=== PATIENT | male | born 1975 | race Caucasian/White ===

== ENCOUNTER 2017-09-16 12:24 | Emergency (ER) | payer SELFPAY ==
--- NOTE | 2017-09-16 13:39 | ER Document Report ---
HPI - HPI Pain Level: 5 Notes: Patient is a 41-year-old male who presents the ED complaining of left ankle and left lateral foot pain status post injury last evening. Patient states that he was walking through his yard when he fell in a hole and his foot inverted. Patient states that he felt a pop in his foot. Patient has not had any obvious swelling or bruising to the area. Patient states that he is unable to weight- bear because of the pain. He denies any significant past medical history otherwise. Denies any smoking or IV drug use. Patient states that he can still move his toes and his foot at his ankle. Denies any headache, fever, neck pain, chest pain, palpitations, syncope, cough, shortness of breath, wheeze , dyspnea, abdominal pain, nausea/vomiting/diarrhea, urinary retention, dysuria , hematuria, numbness/tingling, muscle paralysis/weakness, or rash. - ROS Systems Reviewed and Negative: Yes All other systems reviewed and negative Past Medical History - Social History Smoking Status: Never Smoker Family History: Reviewed & Not Pertinent Vertical Provider Document - CONSTITUTIONAL Agree With Documented VS: Yes Notes: PHYSICAL EXAMINATION: GENERAL: Well-appearing, well-nourished and in no acute distress. A&Ox4. LUNGS: Breath sounds clear to auscultation bilaterally and equal. No wheezes rales or rhonchi. HEART: Regular rate and rhythm without murmurs, rubs, gallops. Musculoskeletal: Left ankle/foot: FROM to passive/active. Strength 5+/5. No obvious swelling, ecchymosis, erythema, or deformity noted. N/V intact distal. + tenderness to the lateral malleolus and palp to the lateral foot. Achilles intact. Extremities: No cyanosis, clubbing, or edema b/l. Peripheral pulses 2+. Capillary refill less than 3 seconds. NEUROLOGICAL: Normal sensory, motor exams otherwise PSYCH: Normal mood, normal affect. SKIN: Warm, Dry, normal turgor, no rashes or lesions noted. - INFECTION CONTROL TRAVEL OUTSIDE OF THE [place] IN LAST 30 DAYS: No - RESPIRATORY O2 Sat by Pulse Oximetry: 98 Course - Re-evaluation Re-evalutation: 09/16/17 14:22 Patient is an afebrile, well-hydrated, 41-year-old male who presents the ED with a left lateral ankle/foot sprain versus strain. Vitals are stable. PE is otherwise unremarkable for any neurovascular compromise, obvious tendon/ ligament rupture, obvious fracture/dislocation, septic joint. X-ray was unremarkable for any acute pathology. Crutches were provided along with an ankle stirrup splint. Recommend conservative measures for symptoms. Recheck with your PCM in 3-5 days. Consider consult with orthopedics as physical therapy. Return to the ED with any worsening/concerning symptoms otherwise as reviewed discharge. Patient is in agreement. - Vital Signs Vital signs: Temp Pulse Resp BP Pulse Ox 98.2 F 85 16 110/80 98 09/16/17 12:37 09/16/17 12:37 09/16/17 12:37 09/16/17 12:37 09/16/17 12:37 Discharge - Discharge Clinical Impression: Left foot pain Left ankle pain Qualifiers: Chronicity: acute Qualified Code(s): M25.572 - Pain in left ankle and joints of left foot Condition: Stable Disposition: HOME, SELF-CARE Instructions: Ankle Stirrup Splint ([facility]), Use of Crutches ([facility]), Ice & Elevation ([facility]) Additional Instructions: Rest, Ice, Compression, Elevation Use crutches/splint as directed Tylenol/ibuprofen as needed Light stretches daily Strength exercises as able Moist heat and massage may help F/u with your PCP in 3-5 days for a recheck Consider consult(s) with Orthopedics/physical therapy for ongoing/worsening symptoms Return to the ED with any worsening symptoms and/or development of fever, headache, chest pain, palpitations, syncope, shortness of breath, trouble breathing, abdominal pain, n/v/d, muscle weakness/paralysis, numbness/tingling, swelling, redness, or other worsening symptoms that are concerning to you. Prescriptions: Naproxen 500 mg PO BID PRN #30 tablet PRN Reason: Referrals: [facility] ([facility] [Provider Group] - Follow up as needed
--- NOTE | 2017-09-16 14:06 | RADIOLOGY REPORT (SQ) ---
EXAM DESCRIPTION: ANKLE LEFT COMPLETE COMPLETED DATE/TIME: 09/16/2017 1:54 pm REASON FOR STUDY: left ankle/foot pain s/p injury COMPARISON: None. NUMBER OF VIEWS: Three views. TECHNIQUE: AP, lateral, and oblique radiographic images acquired of the left ankle. LIMITATIONS: None. FINDINGS: MINERALIZATION: Normal. BONES: No acute fracture or dislocation. No worrisome bone lesions. JOINTS: No effusions. SOFT TISSUES: No soft tissue swelling. No foreign body. OTHER: No other significant finding. IMPRESSION: NEGATIVE STUDY OF THE LEFT ANKLE. NO RADIOGRAPHIC EVIDENCE OF ACUTE INJURY. TECHNICAL DOCUMENTATION: JOB ID: [id number] [employer]- All Rights Reserved
--- NOTE | 2017-09-16 14:10 | RADIOLOGY REPORT (SQ) ---
EXAM DESCRIPTION: FOOT LEFT COMPLETE COMPLETED DATE/TIME: 09/16/2017 1:54 pm REASON FOR STUDY: left ankle/foot pain s/p injury COMPARISON: None. NUMBER OF VIEWS: Three views. TECHNIQUE: AP, lateral and oblique radiographic images acquired of the left foot. LIMITATIONS: None. FINDINGS: MINERALIZATION: Normal. BONES: No acute fracture or dislocation. No worrisome bone lesions. Minimal calcaneal spurring at t he insertion of the Achilles. JOINTS: No effusions. SOFT TISSUES: No soft tissue swelling. No foreign body. OTHER: No other significant finding. IMPRESSION: NO RADIOGRAPHIC EVIDENCE OF ACUTE INJURY. TECHNICAL DOCUMENTATION: JOB ID: [id number] [employer]- All Rights Reserved
[2017-09-16 14:51] VITALS: BP 126/90
== END 2017-09-16 14:49 | disposition home or self-care (01) ==
LOC: ER 12:24
DX: M25.572 Pain in left ankle and joints of left foot (principal); W17.2XXA Fall into hole, initial encounter; Y92.007 Garden or yard of unspecified non-institutional (private) residence as the place of occurrence of the external cause
CPT/HCPCS: 99283; 73610; 73630; L1902

== ENCOUNTER 2017-12-19 13:56 | Emergency (ER) | payer SELFPAY ==
[2017-12-19] MEDS ORDERED: LIDOCAINE 2% VISCOUS SOLN 20 ML UDCUP PO ONE (14:19)
--- NOTE | 2017-12-19 14:25 | ER Document Report ---
HPI - HPI Pain Level: 3 Notes: Patient is a 42-year-old male no significant past medical history who presents to the ED complaining of right ear pain 1 week. Patient states that he has not noticed any drainage from his ear. The pain radiates down into his jaw at times. He is eating and drinking without difficulties, but does experience discomfort when he opens and closes his jaw and feels like his ear is not equalizing the pressure appropriately. He denies any drug allergies. Denies any IV drug use. No other concerns or complaints at this time. Denies any headache, fever, head injury, neck pain, URI, sore throat, chest pain, palpitations, syncope, cough, shortness of breath, wheeze, dyspnea, abdominal pain, nausea/vomiting/diarrhea, urinary retention, dysuria, hematuria, or rash. - ROS Systems Reviewed and Negative: Yes All other systems reviewed and negative Past Medical History - Social History Smoking Status: Unknown if Ever Smoked Family History: Reviewed & Not Pertinent Renal/ Medical History: Denies: Hx Peritoneal Dialysis Vertical Provider Document - CONSTITUTIONAL Agree With Documented VS: Yes Notes: PHYSICAL EXAMINATION: GENERAL: Well-appearing, well-nourished and in no acute distress. A&Ox4. Answers questions appropriately. Moves comfortably w/o notable distress HEAD: Atraumatic, normocephalic. EYES: Pupils equal round and reactive to light, extraocular movements intact, sclera anicteric, conjunctiva are normal. ENT: EAC clear b/l. Rt TM is erythemic, bulging. Lt TM wnl. Nares patent and without discharge. oropharynx no erythema without exudates. No tonsilar hypertrophy without erythema or exudate. No palatine shift. Uvula midline. No tongue protrusion. No drooling, hoarseness, or airway compromise. Moist mucous membranes. No sinus tenderness. NECK: Normal range of motion, supple without lymphadenopathy. No rigidity/ meningismus. LUNGS: Breath sounds clear to auscultation bilaterally and equal. No wheezes rales or rhonchi. No retractions HEART: Regular rate and rhythm without murmurs, rubs, gallops. ABDOMEN: Soft, nontender, nondistended abdomen. No guarding, no rebound. No masses appreciated. Normal bowel sounds present. No CVA tenderness bilaterally. No hepatosplenomegaly. NEUROLOGICAL: Normal speech, normal gait. Normal sensory, motor exams PSYCH: Normal mood, normal affect. SKIN: Warm, Dry, normal turgor, no rashes or lesions noted. - INFECTION CONTROL TRAVEL OUTSIDE OF THE [place] IN LAST 30 DAYS: No Course - Re-evaluation Re-evalutation: 12/19/17 14:25 Patient is an afebrile, well-hydrated, 42-year-old male who presents to the ED with acute otitis media of the right ear. Vitals are acceptable. PE is otherwise unremarkable. I did place half a cc of viscous lidocaine into the right EAC as there is no tympanic membrane perforation which did resolve patient 's symptoms, advised that this will only be temporary. No labs or imaging warranted at this time based on H&P. I will send him home with a prescription for amoxicillin to take as directed. Conservative measures otherwise for symptoms. Recheck with your PCM in 3-5 days. Return to the ED with any worsening/concerning symptoms otherwise as reviewed discharge. Patient is in agreement. - Vital Signs Vital signs: Temp Pulse Resp BP Pulse Ox 98.5 F 77 18 121/74 96 12/19/17 14:06 12/19/17 14:06 12/19/17 14:06 12/19/17 14:06 12/19/17 14:06 Discharge - Discharge Clinical Impression: Otitis media of right ear Qualifiers: Otitis media type: unspecified Qualified Code(s): H66.91 - Otitis media, unspecified, right ear Condition: Stable Disposition: HOME, SELF-CARE Instructions: Otitis Media ([facility]) Additional Instructions: Maintain adequate fluid intake Take meds as directed tylenol/ibuprofen as needed over the counter cold medication as needed for symptoms Avoid q-tips in ears Wash your hands regularly F/u: with your PCM in 3-5 days for a recheck Consider consult with ENT Return to the ED with any fever, worsening pain, chest pain, palpitations, syncope, worsening RICHARDS, neck pain/stiffness, shortness of breath, wheezing, drooling, trouble swallowing/breathing, abdominal pain, n/v/d, rash, or worsening/concerning symptoms otherwise. Prescriptions: Amoxicillin Trihydrate [Amoxil 875 mg Tablet] 1 tab PO BID #20 tablet Referrals: CRISTEL VILLALOBOS DO [ASSOCIATE] - Follow up as needed
[2017-12-19 14:50] VITALS: BP 104/58
== END 2017-12-19 14:50 | disposition home or self-care (01) ==
LOC: ER 13:56
DX: H66.91 Otitis media, unspecified, right ear (principal)
CPT/HCPCS: 99282; J3490

== ENCOUNTER 2018-03-24 21:07 | Emergency (ER) | payer SELFPAY ==
[2018-03-24] MEDS ORDERED: KETOROLAC TROMETHAMINE 60 MG/2 ML SDV IM ONE (22:43)
[2018-03-24] MEDS ORDERED: DIAZEPAM INJ 10 MG/2 ML DISP.SYRIN IM ONE (22:43)
--- NOTE | 2018-03-24 22:43 | ER Document Report ---
ED General - General Chief Complaint: Back Pain Stated Complaint: BACK PAIN Time Seen by Provider: 03/24/18 22:25 Mode of Arrival: Wheelchair Information source: Patient Notes: Patient reports that approximately 2 weeks ago he was helping a friend move when he fell off of a [employer] truck landing onto his back. Patient reports that he got up and shrugged it off however the pain has progressively gotten worse over the last 2 weeks. Patient's pain is located from the cervical spine down into the lumbar spine mostly on the right-hand side. With radiation to the right leg. Patient denies any fever, denies any loss of bowel or bladder. TRAVEL OUTSIDE OF THE [place] IN LAST 30 DAYS: No - Related Data Allergies/Adverse Reactions: No Known Allergies Allergy (Verified 09/16/17 12:29) Past Medical History - General Information source: Patient - Social History Smoking Status: Never Smoker Chew tobacco use (# tins/day): No Frequency of alcohol use: None Drug Abuse: None Family History: Reviewed & Not Pertinent Patient has suicidal ideation: No Patient has homicidal ideation: No - Medical History Medical History: Negative Renal/ Medical History: Denies: Hx Peritoneal Dialysis Surgical Hx: Negative - Immunizations Immunizations up to date: Yes Hx Diphtheria, Pertussis, Tetanus Vaccination: Yes Review of Systems - Review of Systems Constitutional: No symptoms reported EENT: No symptoms reported Cardiovascular: No symptoms reported Respiratory: No symptoms reported Gastrointestinal: No symptoms reported Genitourinary: No symptoms reported Male Genitourinary: No symptoms reported Musculoskeletal: See HPI Skin: No symptoms reported Hematologic/Lymphatic: No symptoms reported Neurological/Psychological: No symptoms reported Physical Exam - Vital signs Vitals: Temp Pulse Resp BP Pulse Ox 98.9 F 85 18 125/90 H 96 03/24/18 21:18 03/24/18 21:18 03/24/18 21:18 03/24/18 21:18 03/24/18 21:18 - Notes Notes: PHYSICAL EXAMINATION: GENERAL: Well-appearing, well-nourished and in no acute distress. HEAD: Atraumatic, normocephalic. EYES: Pupils equal round and reactive to light, extraocular movements intact, sclera anicteric, conjunctiva are normal. NECK: Normal range of motion, supple without lymphadenopathy LUNGS: Breath sounds clear to auscultation bilaterally and equal. No wheezes rales or rhonchi. HEART: Regular rate and rhythm without murmurs Musculoskeletal: Normal range of motion, no pitting or edema. No cyanosis. Tenderness to palpation to right paraspinous muscles. NEUROLOGICAL: Cranial nerves grossly intact. Normal speech. Normal sensory, motor exams PSYCH: Normal mood, normal affect. SKIN: Warm, Dry, normal turgor, no rashes or lesions noted. Course - Re-evaluation Re-evalutation: 03/25/18 00:19 All radiology studies are negative for any acute fractures or dislocations. Patient reports significant relief after administration of both pain medications and muscle relaxer. Will discharge patient home at this time in stable condition. - Vital Signs Vital signs: Temp Pulse Resp BP Pulse Ox 98.9 F 85 18 125/90 H 96 03/24/18 21:18 03/24/18 21:18 03/24/18 21:18 03/24/18 21:18 03/24/18 21:18 Discharge - Discharge Clinical Impression: Back strain Qualifiers: Encounter type: initial encounter Qualified Code(s): S39.012A - Strain of muscle, fascia and tendon of lower back, initial encounter Condition: Stable Disposition: HOME, SELF-CARE Additional Instructions: LOW BACK PAIN: Three out of every four people will have an episode of disabling back pain during their lifetime. Most commonly the pain is due to straining of the muscles and ligaments in the low back. Usual treatment includes: (1) Rest on a firm surface. Avoid lying on your stomach. (2) Ice pack the painful area. After a few days, gentle heat may be used intermittently to relax the area, or ice packs can be continued. (3) Medication may be needed -- muscle relaxers and antiinflammatory medicines are commonly used. (4) As the back improves, exercises are prescribed to strengthen the back and abdominal muscles. Your doctor will advise you on the proper care for your back at each stage in your recovery. You may be better in a few days -- or healing may take several weeks. If new symptoms of a "herniated disc" (radiation of pain, numbness, or tingling down the back of the leg or weakness in the leg) occur, you should be re-examined. Further testing may be necessary. PAIN MEDICATION INJECTION: You have received an injection of a pain medication. You should experience significant pain relief within 45 minutes. If this injection was a narcotic -- it will impair your judgement, slow your reaction time and make you sleepy (as well as relieve your pain). Narcotics also can cause nausea. You should not drive, work with machinery, or perform any task requiring mental alertness until all effects of the medication are gone -- six to eight hours. Do not take any alcohol, or sedatives, and do not take any other medication without checking with your physician. MUSCLE RELAXERS: Muscle relaxing medications are usually prescribed for acute muscle spasm or injury to the neck and back. They are often combined with antiinflammatory pain medication for increased relief. You may stop the muscle relaxer when the pain and stiffness have improved. Start the medication again if spasms recur. Muscle relaxers may cause drowsiness, especially with the first dose. Do not operate machinery or drive while under the effects of the medication. Most muscle relaxers last up to 24 hours. Do not combine the medication with alcohol. ICE PACKS: Apply ice packs frequently against the painful area. Many different schedules are recommended, such as "20 minutes on, 20 minutes off" or "one hour ice, two hours rest." If you need to work, you may need to go longer between ice treatments. You should plan to have the area ice packed AT LEAST one fourth of the time. The ice should be applied over the wrap, tape, or splint, or over a layer of cloth -- not directly against the skin. Some ice bags have a built-in cloth and can be put directly on the skin. WARM PACKS: After approximately two days, apply gentle heat (such as a heating pad or hot water bottle) for about 20 to 30 minutes about every two hours -- at least four times daily. Warmth and elevation will help you make a more rapid recovery , and will ease the pain considerably. Do not use HOT heat, and never apply heat for longer than 30 minutes. The continuous heat can invisibly damage skin and muscles -- even when no burn is seen on the surface. Damaged muscles can make you MORE sore. FOLLOW-UP CARE: If you have been referred to a physician for follow-up care, call the physician s office for an appointment as you were instructed or within the next two days. If you experience worsening or a significant change in your symptoms, notify the physician immediately or return to the Emergency Department at any time for re-evaluation. Prescriptions: Cyclobenzaprine HCl [Flexeril 10 mg Tablet] 10 mg PO TIDP PRN #15 tab PRN Reason: Ketorolac Tromethamine [Toradol 10 mg Tablet] 10 mg PO Q6 #20 tablet Forms: Return to Work Referrals: [facility] [Provider Group] - Follow up as needed
--- NOTE | 2018-03-24 23:18 | RADIOLOGY REPORT (SQ) ---
EXAM DESCRIPTION: XR CERVICAL SPINE 2 - 3 VIEWS COMPLETED DATE/TME: 03/24/2018 22:49 CLINICAL HISTORY: 42 years Male, fall with pain COMPARISON: None. Findings: Normal alignment and curvature. Vertebral and intervertebral heights are maintained. Extraspinal structures are grossly intact. IMPRESSION: No acute findings of XR CERVICAL SPINE 3 VIEWS .
--- NOTE | 2018-03-24 23:18 | RADIOLOGY REPORT (SQ) ---
EXAM DESCRIPTION: XR LUMBAR SPINE ANTEROPOSTERIOR, LATERAL, AND OBLIQUES COMPLETED DATE/TME: 03/24/2018 22:48 CLINICAL HISTORY: 42 years Male, fall with pain COMPARISON: None. Findings: Normal alignment and curvature. Vertebral heights are maintained. Mild L5-S1 desiccated disc height loss. Extraspinal structures are grossly intact. IMPRESSION: No acute findings of XR LUMBAR SPINE ANTEROPOSTERIOR, LATERAL, AND OBLIQUES .
--- NOTE | 2018-03-24 23:19 | RADIOLOGY REPORT (SQ) ---
EXAM DESCRIPTION: XR THORACIC SPINE 2 VIEWS COMPLETED DATE/TME: 03/24/2018 22:48 CLINICAL HISTORY: 42 years Male, fall with pain COMPARISON: None. Findings: Normal alignment and kyphotic curvature. Mild-moderate levo convexity. Vertebral and intervertebral heights are within normal limits for age. Extraspinal structures are grossly intact. IMPRESSION: No acute findings of XR THORACIC SPINE 2 VIEWS .
[2018-03-25] MEDS ORDERED: HYDROCODONE/ACETAMINOPHEN 5-325 MG (6 TAB/ER DISP) PO PRN (00:27)
[2018-03-25 01:01] VITALS: BP 114/83
== END 2018-03-25 01:00 | disposition home or self-care (01) ==
LOC: ER 21:07
DX: S39.012A Strain of muscle, fascia and tendon of lower back, initial encounter (principal); W17.89XA Other fall from one level to another, initial encounter; Y93.E6 Activity, residential relocation
CPT/HCPCS: 99283; 96372; 72040; 72110; 72070; J3360; J1885

== ENCOUNTER 2019-05-04 14:48 | Emergency (ER) | payer SELFPAY ==
--- NOTE | 2019-05-04 15:37 | ER Document Report ---
ED Medical Screen (RME) - General Chief Complaint: Chest Pain Stated Complaint: CHEST PAIN Time Seen by Provider: 05/04/19 15:35 Mode of Arrival: Medic Information source: Patient Notes: 43-year-old male presents to ED for complaint of left-sided chest pain. He states he has been very weak and unable to walk since this pain started. He states he has been short of breath all day. He is very weak states that his fingers are tingly states he is having a very hard time staying balanced. States both legs have been extremely weak. He was very difficult to ambulate. I have greeted and performed a rapid initial assessment of this patient. A comprehensive ED assessment and evaluation of the patient, analysis of test results and completion of medical decision making process will be conducted by an additional ED providers. TRAVEL OUTSIDE OF THE [place] IN LAST 30 DAYS: No - Related Data Allergies/Adverse Reactions: No Known Allergies Allergy (Verified 05/04/19 14:49) Past Medical History Renal/ Medical History: Denies: Hx Peritoneal Dialysis - Immunizations Immunizations up to date: Yes Hx Diphtheria, Pertussis, Tetanus Vaccination: Yes Physical Exam - Vital signs Vitals: Temp Pulse Resp BP Pulse Ox 98.0 F 51 L 16 108/69 100 05/04/19 15:24 05/04/19 15:24 05/04/19 15:24 05/04/19 15:24 05/04/19 15:24 Course - Vital Signs Vital signs: Temp Pulse Resp BP Pulse Ox 98.0 F 51 L 16 108/69 100 05/04/19 15:24 05/04/19 15:24 05/04/19 15:24 05/04/19 15:24 05/04/19 15:24
[2019-05-04 15:51] LABS: INTERNATIONAL RATION (INR) 0.99; PROTHROMBIN TIME 13.1 SEC (11.4-15.4)
[2019-05-04 15:52] LABS: PARTIAL THROMBOPLASTIN TIME 30.5 SEC (23.5-35.8)
[2019-05-04 15:56] LABS: ABSOLUTE BASOPHILS # (AUTO) 0.1 10^3/uL (0.0-0.2); ABSOLUTE EOSINOPHILS # (AUTO) 0.3 10^3/uL (0.0-0.6); ABSOLUTE LYMPHOCYTES (AUTO) 1.8 10^3/uL (0.5-4.7); ABSOLUTE MONOCYTES (AUTO) 0.4 10^3/uL (0.1-1.4); ABSOLUTE NEUT (AUTO) 4.2 10^3/uL (1.7-8.2); BASOPHILS % (AUTO) 0.9 % (0-2); EOSINOPHILS % (AUTO) 3.9 % (0-6); HEMATOCRIT 39.8 % (37.9-51.0); HEMOGLOBIN 13.7 g/dL (13.5-17.0); LYMPHOCYTES % (AUTO) 26.1 % (13-45); MEAN CORPUSCULAR HEMOGLOBIN 30.1 pg (27.0-33.4); MEAN CORPUSCULAR HGB CONC 34.4 g/dL (32.0-36.0); MEAN CORPUSCULAR VOLUME 88 fl (80-97); MONOCYTES % (AUTO) 6.5 % (3-13); PLATELET COUNT 253 10^3/uL (150-450); RED BLOOD COUNT 4.55 10^6/uL (4.35-5.55); RED CELL DISTRIBUTION WIDTH 13.1 % (11.5-14.0); SEGMENTED NEUTROPHILS % (AUTO) 62.6 % (42-78); TOTAL CELLS COUNTED % (AUTO) 100 %; WHITE BLOOD COUNT 6.7 10^3/uL (4.0-10.5)
[2019-05-04 16:07] LABS: ALBUMIN 4.6 g/dL (3.5-5.0); ALKALINE PHOSPHATASE 65 U/L (38-126); ANION GAP 11 (5-19); ASPARTATE AMINO TRANSFERASE 48 U/L (17-59); BILIRUBIN,DIRECT 0.3 mg/dL (0.0-0.4); BILIRUBIN,TOTAL 0.6 mg/dL (0.2-1.3); BLOOD UREA NITROGEN 12 mg/dL (7-20); CALCIUM 9.1 mg/dL (8.4-10.2); CARBON DIOXIDE 26 mmol/L (22-30); CHLORIDE 103 mmol/L (98-107); CREATINE KINASE 140 U/L (55-170); GLUCOSE 95 mg/dL (75-110); POTASSIUM 4.5 mmol/L (3.6-5.0); TOTAL PROTEIN 7.3 g/dL (6.3-8.2)
[2019-05-04 16:28] LABS: TROPONIN I < 0.012 ng/mL
--- NOTE | 2019-05-04 17:28 | RADIOLOGY REPORT (SQ) ---
EXAM DESCRIPTION: CHEST 2 VIEWS COMPLETED DATE/TIME: 05/04/2019 5:07 pm REASON FOR STUDY: chest pain COMPARISON: None. EXAM PARAMETERS: NUMBER OF VIEWS: two views TECHNIQUE: Digital Frontal and Lateral radiographic views of the chest acquired. RADIATION DOSE: NA LIMITATIONS: none FINDINGS: LUNGS AND PLEURA: No opacities, masses or pneumothorax. No pleural effusion. MEDIASTINUM AND HILAR STRUCTURES: No masses or contour abnormalities. HEART AND VASCULAR STRUCTURES: Heart normal size. No evidence for failure. BONES: No acute findings. HARDWARE: None in the chest. OTHER: No other significant finding. IMPRESSION: NO ACUTE RADIOGRAPHIC FINDING IN THE CHEST. TECHNICAL DOCUMENTATION: JOB ID: [id number] [employer]- All Rights Reserved Reading location - IP/workstation name: [email or web address]
[2019-05-04] MEDS ORDERED: NORMAL SALINE 1000 ML 1,000 ML IV ONE (21:02)
[2019-05-04] MEDS ORDERED: KETOROLAC TROMETHAMINE INJ/PF 30 MG/1 ML SDV IV ONE (21:02)
--- NOTE | 2019-05-04 21:10 | ER Document Report ---
ED General - General Chief Complaint: Chest Pain Stated Complaint: CHEST PAIN Time Seen by Provider: 05/04/19 15:35 Mode of Arrival: Medic TRAVEL OUTSIDE OF THE [place] IN LAST 30 DAYS: No - HPI Notes: Patient is a 43-year-old male presents emergency department for evaluation of chest pain. He initially states this started today on his way to work, but he actually states it is been present for the last 6 weeks intermittently. It does seem worse today. He felt dizzy and somewhat short of breath and lightheaded. He is always been treating this to his hard work. He works outdoors in the heat, works with his hands in a salvage yard. He states that the pain is sharp. Nothing to make it better or worse. He has had some associated dizziness and generally feeling weak. Denies any near syncope. - Related Data Allergies/Adverse Reactions: No Known Allergies Allergy (Verified 05/04/19 14:49) Home Medications: None Past Medical History - General Information source: Patient - Social History Smoking Status: Never Smoker Frequency of alcohol use: None Drug Abuse: None Family History: Other - Unknown, patient does not know his family Patient has suicidal ideation: No Patient has homicidal ideation: No Renal/ Medical History: Denies: Hx Peritoneal Dialysis Past Surgical History: Reports: Other - Craniectomy as a 4-year-old secondary to trauma - Immunizations Immunizations up to date: Yes Hx Diphtheria, Pertussis, Tetanus Vaccination: Yes Review of Systems - Review of Systems Constitutional: See HPI EENT: No symptoms reported Cardiovascular: See HPI Respiratory: No symptoms reported Gastrointestinal: No symptoms reported Genitourinary: No symptoms reported Musculoskeletal: No symptoms reported Skin: No symptoms reported Neurological/Psychological: No symptoms reported Physical Exam - Vital signs Vitals: Temp Pulse Resp BP Pulse Ox 98.0 F 51 L 16 108/69 100 05/04/19 15:24 05/04/19 15:24 05/04/19 15:24 05/04/19 15:24 05/04/19 15:24 - Notes Notes: Vital signs reviewed, please refer to chart. Head is normocephalic, atraumatic. Pupils equal round, reactive to light. Neck is supple without meningismus. Heart is regular rate and rhythm. Lungs are clear to auscultation bilaterally. Chest wall is tender to palpation. Abdomen is soft, nontender, normoactive bowel sounds throughout. Extremities without cyanosis, clubbing. Posterior calv es are nontender. Peripheral pulses are equal. Skin is warm and dry. Patient is awake, alert, oriented x3. Cranial nerves II - XII are grossly intact without focal neurological deficits. Strength is plus 5 out of 5 bilateral upper and lower extremities. Sensation is intact. Reflexes symmetrical. Intact [id number], rapid alternating movements, [id number]. Course - Re-evaluation Re-evalutation: 05/04/19 21:09 Patient presents emergency department for evaluation. His chest pain is been going on intermittently for some time. It certainly does not seem anginal. He has no risk factors for PE to his knowledge. His heart rate is in the 40s and 50s while he is here. He is given IV fluids, Toradol. His chest wall is tender to palpation, which reproduces his pain. My suspicion is that this is chest wall in nature. I strongly encouraged the patient to follow-up with primary care. He needs to make sure all of his risk factors are being addressed and he voiced understanding to this. I cannot rule out early cardiac history in his family as he is unaware of his family history. He is to follow-up with primary care, return to the ED with worsening or concerning symptoms of any sort. 05/04/19 22:28 Patient feeling improved. Laboratory investigations unremarkable. We will send him home. He is encouraged to follow-up with primary care and be sure that his risk factors are being addressed. He is to return to the ED with worsening or new concerning symptoms of any sort. - Vital Signs Vital signs: Temp Pulse Resp BP Pulse Ox 98.5 F 51 L 17 111/82 100 05/04/19 21:01 05/04/19 15:24 05/04/19 21:01 05/04/19 21:01 05/04/19 21:01 - Laboratory Result Diagrams: 05/04/19 14:19 05/04/19 14:19 Laboratory results interpreted by me: 05/04/19 21:00 Urine Ketones TRACE H Urine Ascorbic Acid 40 H - Diagnostic Test Radiology reviewed: Reports reviewed Radiology results interpreted by me: 05/04/19 21:09 Chest X-Ray 05/04/19 15:37 IMPRESSION: NO ACUTE RADIOGRAPHIC FINDING IN THE CHEST. - EKG Interpretation by Me Additional EKG results interpreted by me: 05/04/19 21:09 Sinus bradycardia with a rate of 51 bpm. Normal axis and intervals. Nonspecific ST changes, but no acute changes concerning for ischemia or infarction. No studies available for comparison. Discharge - Discharge Clinical Impression: Chest pain, Dizziness Condition: Stable Disposition: HOME, SELF-CARE Instructions: Chest Pain of Unclear Cause ([facility]), Dizziness ([facility]) Additional Instructions: No clear cause was found for your symptoms today. Follow-up with primary care in 1 to 2 weeks. Return to the emergency department with worsening or new concerning symptoms of any sort.
[2019-05-04 21:40] LABS: APPEARANCE,URINE SLIGHTLY-CLOUDY; BILIRUBIN,URINE NEGATIVE (NEGATIVE); COLOR,URINE DARK YELLOW; GLUCOSE, URINE NEGATIVE (NEGATIVE); KETONES,URINE TRACE mg/dL (NEGATIVE); LEUKOCYTE ESTERASE,URINE NEGATIVE (NEGATIVE); NITRITE,URINE NEGATIVE (NEGATIVE); PROTEIN,URINE NEGATIVE (NEGATIVE); URINE SPECIFIC GRAVITY 1.033; UROBILINOGEN,URINE NEGATIVE mg/dL (<2.0)
[2019-05-04 23:01] VITALS: BP 105/72
--- NOTE | 2019-05-04 23:02 | EKG REPORT ---
SEVERITY:- NORMAL ECG - SINUS RHYTHM ST ELEV, PROBABLE NORMAL EARLY REPOL PATTERN : Confirmed by: Indiana Lynn MD 04-May-2019 23:00:52
== END 2019-05-04 23:01 | disposition home or self-care (01) ==
LOC: ER 14:48
DX: R07.9 Chest pain, unspecified (principal); R42 Dizziness and giddiness; R00.1 Bradycardia, unspecified; R06.02 Shortness of breath; R53.1 Weakness
CPT/HCPCS: 93005; 36415; 82553; 82550; 83690; 85025; 85610; 85730; 80053; 81001; 84484; 71046; 93010; J1885; J7030; 96361; 96374; 99285